=== PATIENT | female | born 1995 | race Caucasian/White ===

== ENCOUNTER 2019-10-26 12:39 | Emergency (ER) | payer SELFPAY ==
[2019-10-26 12:47] VITALS: BP 129/82; PULSE 80; RESP 14; TEMP 36.7; O2SAT 100
--- NOTE | 2019-10-26 14:24 | ED.PREGNANCY ---
HPI - General Chief complaint: OB/Uterine Contractions Stated complaint: Spotting 2 positive preg tests Time Seen by Provider: 10/26/19 14:17 Source: patient Mode of arrival: ambulatory Limitations: no limitations History of Present Illness HPI Narrative: A 24 y/o female presents to the ED with c/o vaginal bleeding. The pt states that she had 2 positive home tests on 10/18/19 and 10/22/19. She notes that last night she started to have vaginal bleeding and discharge. Pt adds that the vaginal discharge became darker today so she decided to come to the ED. She reports hematuria, tender breasts, loss of appetite, frequent urination, and intermittent lower ABD pain, but denies dysuria and nausea. Pt adds that the frequent urination started 3 weeks ago. Her LNMP was on 09/19/19. MD Complaint: vaginal bleeding Onset (ago): day(s) (1) Associated symptoms: vaginal discharge and other (Hematuria, tender breasts, loss of appetite, frequent urination, intermittent lower ABD pain) Vaginal discharge: other (Dark) Vaginal bleeding: light Date of Last Menstrual Period: 10/20/19 Related Data Allergies Allergy/AdvReac Type Severity Reaction Status Date / Time Cephalosporins Allergy Unknown Unknown Unverified 09/20/19 04:24 Penicillins Allergy Unknown Unknown Unverified 09/20/19 04:24 Review of Systems Review of Systems: All systems reviewed & are unremarkable except as noted in HPI and below Constitutional: Constitutional: Reports poor appetite Gastrointestinal: Gastrointestinal: Reports abdominal pain (Lower) and Denies nausea Genitourinary: Genitourinary: Reports abnormal vaginal bleeding, Reports hematuria, Reports nocturia, Denies dysuria and Reports vaginal discharge Integumentary/Breasts: Skin/Breast: Reports breast pain PMFSH Past Medical History Medical History (Updated 10/26/19 @ 15:26 by Dat Brennan MD) Anxiety Depression IBS (irritable bowel syndrome) Pyelonephritis Surgical History Surgical History History of tonsillectomy Social History Social History Smoking status: Never smoker Substance use: never Gender identity (if verbalized by the patient): Female Exam Const: General: healthy appearing and no acute distress Nutritional Appearance: well nourished HENMT: Mouth: Yes lip normal and Yes moist mucous membranes Eyes: Conjunctivae: conjunctivae normal Pupils: Equal, round and reactive pupils present Resp: Effort & Inspection: normal respiratory effort Auscultation: clear to auscultation bilaterally Cardio: Rate: regular rate Rhythm: regular rhythm Heart sounds: no murmurs GI: GI Palp: Yes Soft to palpation and No Tenderness to palpation present (GI) Auscultation: normal bowel sounds Back/Spine/Pelvis: Back: other (Full ROM) Skin: General skin exam: normal color, dry skin and other (Warm) Neuro: General: patient oriented x3 (Alert) Speech: normal speech Extrem: General: full ROM Psych: Mental Status: mental status grossly normal Affect: normal affect Course Vital Signs Vital signs: Vital Signs Temperature 36.7 C 10/26/19 12:47 Pulse Rate 80 10/26/19 12:47 Respiratory Rate 14 10/26/19 12:47 Blood Pressure 129/82 10/26/19 12:47 Pulse Oximetry 100 10/26/19 12:47 Temperature 36.7 C 10/26/19 12:47 Pulse Rate 80 10/26/19 12:47 Respiratory Rate 14 10/26/19 12:47 Blood Pressure 129/82 10/26/19 12:47 Pulse Oximetry 100 10/26/19 12:47 MDM - OB/Uterine Contractions MDM Narrative Medical decision making narrative: test is negative. She likely either had a very early miscarriage or they were false positives. She has some symptoms that could be suggestive of UTI. The UA is inconclusive. I will send off a urine culture and deffer treatment at this time. Medical Records Attestation: I reviewed the patient's medical records. Lab D
[2019-10-26 15:03] LABS: Add Urine Microscopic? YES; Appearance Urine Cloudy (Clear); Bilirubin Urine Negative (Negative); Blood Urine 3+ (Negative); Color Urine Red (Yellow); Glucose Urine UA Negative (Negative); Ketones Urine Negative (Negative); Leukocyte Esterase Ur 1+ LEU/UL (Negative); Mucus Urine Rare /lpf; Nitrate Urine Negative (Negative); Protein Urine 2+ mg/dL (Negative); RBC Urine >75 /hpf (0-2); Squamous Epithelial Cell Urine Occasional /hpf (Few); Urobilinogen Urine Negative mg/dL (<2.0)
== END 2019-10-26 15:48 | disposition home or self-care (01) ==
PROVIDERS: Emergency Provider Emergency Medicine
DX: N93.9 Abnormal uterine and vaginal bleeding, unspecified (principal); K58.9 Irritable bowel syndrome, unspecified
CPT/HCPCS: 81001; 81025; 87086; 87088; 99283

== ENCOUNTER 2020-07-06 16:05 | Observation (INO) | payer OTHER, SELFPAY ==
--- NOTE | 2020-08-01 08:09 | PM.OBTRLD ---
OB - Triage/Final Diagnosis Final Diagnosis (1) False labor: Code(s): O47.9 - False labor, unspecified Status: Acute
== END 2020-07-06 17:35 | disposition home or self-care (01) ==
PROVIDERS: Admitting Provider Obstetrics & Gynecology; Visit Provider Obstetrics & Gynecology
DX: O47.03 False labor before 37 completed weeks of gestation, third trimester (principal); Z3A.36 36 weeks gestation of pregnancy
CPT/HCPCS: G0378; G0379

== ENCOUNTER 2020-07-14 20:00 | Observation (INO) | payer OTHER, SELFPAY ==
[2020-07-14 21:34] VITALS: BP 122/76; PULSE 91
--- NOTE | 2020-07-14 21:54 | LDADM ---
This patient, Gia Jean, was admitted to Labor/Delivery/Recovery 105 on 07/14/20 at 20:00. Plans for labor, pain management and were discussed with patient. Patient/family oriented to hospital policies and general routines including ID bracelet, bed and alarms, visiting hours, pain management, procedures, bathroom and other care routines, personal items, smoking policy, room service/diet and guest tray routines, security routines, and visiting hours. Patient/Family are encouraged to report perceived risks to care and to ask questions if they do not understand what they are told or what they should do. See OBIX for further documentation.
[2020-07-14 21:56] VITALS: BMI 30.9
--- NOTE | 2020-08-28 10:58 | PM.OBTRLD ---
OB - Triage/Final Diagnosis Final Diagnosis (1) False labor: Code(s): O47.9 - False labor, unspecified Status: Acute
== END 2020-07-14 22:15 | disposition home or self-care (01) ==
PROVIDERS: Admitting Provider Obstetrics & Gynecology; Visit Provider Obstetrics & Gynecology
DX: O47.9 False labor, unspecified (principal); Z3A.00 Weeks of gestation of pregnancy not specified
CPT/HCPCS: G0378; G0379

== ENCOUNTER 2020-07-21 20:56 | Observation (INO) | payer OTHER, SELFPAY ==
--- NOTE | 2020-07-21 22:46 | OBADM ---
This patient, Gia Jean, admitted to the OB room Labor/Delivery/Recovery 103 for observation. Patient/family oriented to hospital policies and general routines including ID bracelet, bed and alarms, visiting hours, pain management, procedures, bathroom and other care routines, personal items, smoking policy, room service/diet, and visiting hours. Patient/Family are encouraged to report perceived risks to care and to ask questions if they do not understand what they are told or what they should do.
--- NOTE | 2020-07-24 05:38 | PM.OBTRLD ---
OB - Triage/Final Diagnosis Visit Information Date of evaluation: 07/21/20 Reason for evaluation: threatened labor
== END 2020-07-21 22:40 | disposition home or self-care (01) ==
PROVIDERS: Admitting Provider Obstetrics & Gynecology; Visit Provider Obstetrics & Gynecology
DX: O47.9 False labor, unspecified (principal); Z3A.00 Weeks of gestation of pregnancy not specified
CPT/HCPCS: G0378; G0379

== ENCOUNTER 2020-07-26 21:10 | Inpatient (IN) | payer OTHER, SELFPAY ==
[2020-07-06 17:10] VITALS: BMI 30.9
--- NOTE | 2020-07-26 21:46 | LDADM ---
This patient, Gia Jean, was admitted to Labor/Delivery/Recovery 107 on 07/26/20 at 21:10. Plans for labor, pain management and were discussed with patient. Patient/family oriented to hospital policies and general routines including ID bracelet, bed and alarms, visiting hours, pain management, procedures, bathroom and other care routines, personal items, smoking policy, room service/diet and guest tray routines, security routines, and visiting hours. Patient/Family are encouraged to report perceived risks to care and to ask questions if they do not understand what they are told or what they should do. See OBIX for further documentation.
[2020-07-26 21:47] VITALS: BMI 31.1
[2020-07-26 22:16] LABS: Basophils Percent Auto 0.2 % (0.2-1.2); Eosinophils Percent Auto 0.5 % (0-4.4); Hematocrit 32.9 % (37.0-47.0); Hemoglobin 11.6 g/dL (12.0-15.0); Immature Granulocyte Absolute 0.06 K/mm3 (0.00-0.031); Immature Granulocyte Percent A 0.7 % (0-0.5); Lymphocytes Absolute Auto 1.81 K/mm3 (0.9-3.2); Lymphocytes Percent Auto 20.6 % (18.3-44.2); Mean Corpuscular HGB Conc 35.3 g/dl (32-36); Mean Platelet Volume 9.8 fl (7.4-10.4); Monocytes Absolute Auto 0.6 K/mm3 (0.1-0.6); Monocytes Percent Auto 7.3 % (2.6-8.5); Neutrophils Absolute Auto 6.2 K/mm3 (1.3-6.7); Neutrophils Percent Auto 70.7 % (45.5-73.1); Platelet Count Result 290 k/mm3 (150-375); Red Blood Count 3.74 M/mm3 (4.2-5.4); Red Cell Distribution Width 12.1 % (11.5-14.5); White Blood Count 8.8 K/mm3 (4.5-10.0)
[2020-07-26] MEDS: DINOPROSTONE 10 MG VAG INSERT VAGINAL (22:20)
[2020-07-26 23:28] VITALS: BP 104/53; PULSE 75
[2020-07-26 23:30] VITALS: BP 106/56; PULSE 76
[2020-07-26 23:45] VITALS: BP 107/65; PULSE 72
[2020-07-27] VITALS (142 sets, daily range): BP systolic 94–153; BP diastolic 53–109; PULSE 53–142; RESP 18; TEMP 36.4–37.2; O2SAT 92–100
[2020-07-27] MEDS: fentaNYL CITRATE INJ (*CRX) 100 MCG/2 ML VIAL 50 MCG IV PUSH ×2 (01:40→04:29)
[2020-07-27] MEDS: LACTATED RINGERS 1,000 ML 125 ML IV CONT ×2 (01:41→09:12)
--- NOTE | 2020-07-27 05:32 | WPDANESEPP ---
Anes - Eval Pre Procedure Procedure: Labor epidural Date/Time: 07/27/20 05:32 Surgeon: Yayo Preop Diagnosis: Abd pain with contractions Pre Op Diagnosis: discharge, IOL Patient Data Age: 25 Gender: F Height: 5 ft 6 in Weight: 87.5 kg Last Vital Signs Temp 99 F 07/27/20 03:00 Pulse 69 07/27/20 05:00 BP 124/62 07/27/20 05:00 Allergies Allergy/AdvReac Type Severity Reaction Status Date / Time Cephalosporins Allergy Unknown Unknown Unverified 09/20/19 04:24 Penicillins Allergy Unknown Unknown Unverified 09/20/19 04:24 Home Medications Medication Instructions Recorded Confirmed Type escitalopram oxalate 20 mg PO DAILY 07/06/20 07/26/20 History [id number] 1 tablet PO DAILY 07/26/20 07/26/20 History [] Laboratory Tests 07/26/20 07/26/20 07/26/20 22:10 22:10 22:10 WBC 8.8 K/mm3 K/mm3 (4.5-10.0) RBC 3.74 M/mm3 L M/mm3 (4.2-5.4) Hgb 11.6 g/dL L g/dL (12.0-15.0) Hct 32.9 % L % (37.0-47.0) MCV 88.0 fl fl (80-100) MCH 31.0 pg pg (26-34) MCHC 35.3 g/dl g/dl (32-36) RDW 12.1 % % (11.5-14.5) Plt Count 290 k/mm3 k/mm3 (150-375) MPV 9.8 fl fl (7.4-10.4) Immature Gran % (Auto) 0.7 % H % (0-0.5) Neut % (Auto) 70.7 % % (45.5-73.1) Lymph % (Auto) 20.6 % % (18.3-44.2) Linn % (Auto) 7.3 % % (2.6-8.5) Eos % (Auto) 0.5 % % (0-4.4) Baso % (Auto) 0.2 % % (0.2-1.2) Lymph # (Auto) 1.81 K/mm3 K/mm3 (0.9-3.2) Linn # (Auto) 0.6 K/mm3 K/mm3 (0.1-0.6) Eos # (Auto) 0.0 K/mm3 K/mm3 (0-0.3) Baso # (Auto) 0.0 K/mm3 K/mm3 (0.0-0.1) Abs Immat Gran (auto) 0.06 K/mm3 H K/mm3 (0.00-0.031) Absolute Neuts (auto) 6.2 K/mm3 K/mm3 (1.3-6.7) Absolute Nucleated RBC 0.0 K/mm3 K/mm3 (0.0-0.012) Nucleated RBC % 0.0 % % (0.0-0.2) RPR Pending Blood Type B Positive Antibody Screen Negative Patient hx anesthesia problems: none Family hx anesthesia problems: none PMFSH Past Medical History Medical History Anxiety Depression IBS (irritable bowel syndrome) and not yet delivered Pyelonephritis Surgical History Surgical History History of tonsillectomy Social History Social History Smoking status: Never smoker Second hand tobacco smoke exposure: No Alcohol intake: never Substance use: never Living arrangements: with family Occupation/Education: occupation Gender identity (if verbalized by the patient): Female Sexual Orientation (if Verbalized by the Patient): Straight or Heterosexual Spiritual care concerns: No Agree to blood products: Yes Exam Day of Procedure 07/27/20 05:32 Patient weight: overweight Airway: Mallampati scale class II Neurological: alert and oriented
[2020-07-27] MEDS: ONDANSETRON INJ 4 MG/2 ML VIAL IV PUSH (06:38)
--- NOTE | 2020-07-27 08:35 | P.HP_ITS ---
Obstetrics - Admit Note Admission Note: record reviewed. No pertinent additions to the history and/or any subsequent changes in the physical findings that are not consistent with the expected course of the were found. MIL for bleeding in third trimester, SVE 3-4/70/-2, AROM moderate amount of clear odorless fluid, antici meraz vaginal delivery Additions to the history and/or subsequent changes in the physical findings follow. None.
[2020-07-27] MEDS: OXYTOCIN 30 UNITS/NS 500 ML 30 UNITS/500 ML BAG 125 UNITS IV CONT ×2 (11:52→14:15)
--- NOTE | 2020-07-27 13:44 | PM.OBPRVD ---
OB - Delivery Note Procedure Delivery date: 07/27/20 (vaginal delivery) Intrapartal events: None Induction method: none Delivery augmentation: rupture of membranes Delivery monitor: external FHT and external uterine Laceration Description: Perineal - 1st Degree Delivery repair: vicryl Specimen: Yes Quantitative Blood Loss: 213 Anesthesia type: Epidural Disposition: other () [place] Baby Date of : 07/27/20 Time of : 13:28 Weeks of gestation at delivery: 39 gender: Male Weight (pounds): 6 Weight (ounces): 13 presentation: vertex position: Left Occiput Anterior cord vessel description: 2 Vessels, Nuchal Cord and Clamped/Cut score one minute: 8 score five minutes: 9
[2020-07-27] MEDS: BENZOCAINE 20% AER SPR (*SP) 56 GM CAN 1 SPRAY TOPICAL (16:48)
[2020-07-27] MEDS: WITCH HAZEL 40 PADS 1 PAD TOPICAL (16:48)
--- NOTE | 2020-07-27 18:15 | OBPPTRN ---
1703 Patient transferred to post room #281 via W/C. Support person present. Oriented to unit, room, information board, rooming in, admission packet and security measures. Patient verbalizes understanding.
--- NOTE | 2020-07-27 19:40 | PC.NURSE ---
Patient to view the discharge video Mother & Baby Care, The First Two Weeks online per her own device. Patient was given the opportunity and encouraged to ask questions. Patient verbalized understanding of information shared and has been given the mother/baby guide for home reference.
[2020-07-27] MEDS: ZOLPIDEM TARTRATE (*CRX) 5 MG TABLET PO (21:25)
[2020-07-27] MEDS: IBUPROFEN 600 MG TABLET PO (21:26)
[2020-07-28 04:37] LABS: Hematocrit 30.3 % (37.0-47.0); Hemoglobin 10.5 g/dL (12.0-15.0)
[2020-07-28 08:15] VITALS: BP 104/65; PULSE 87; RESP 18; TEMP 37.1; O2SAT 97
[2020-07-28] MEDS: TETANUS,DIPHTHERIA,AC PERTUSSIS ADULT (0.5 ML) BOOSTRIX IM (08:44)
[2020-07-28] MEDS: IBUPROFEN 600 MG TABLET PO (08:45)
[2020-07-28] MEDS: DOCUSATE SODIUM 100 MG CAPSULE PO (08:45)
--- NOTE | 2020-07-28 09:58 | PM.OBPNVD ---
OB - PN: Subj Subjective Date/time seen: 07/28/20 09:58 Patient comments: no complaints baby status: doing well OB - PN: Obj Data Labs CBC & Chem 7: 07/28/20 03:37 Labs: Laboratory Results - last 24 hr 07/28/20 03:37 Hgb 10.5 L Hct 30.3 L OB - PN A/P Plan day: 1 Plan: routine care and discharge home Time Spent With Patient Time: Total time spent is greater than 50% in coordination of care (as documented) at patient's floor/unit and/or counseling patient: Review of Systems Review of Systems: All systems reviewed & are unremarkable except as noted in HPI and below Constitutional: Constitutional: Reports as per HPI Exam Const: General: cooperative Resp: Effort & Inspection: normal respiratory effort Auscultation: clear to auscultation bilaterally
--- NOTE | 2020-07-28 10:00 | PM.OBDSVD ---
DS: Admitting Diagnosis Admitting Diagnosis Admitting Diagnosis: discharge, IOL OB - DS: Summary OB Procedures : None OB Procedures Intrapartum: Spontaneous Vag Delivery OB Procedures: : None Time Spent with Patient Time attestation: Total time spent providing and/or coordinating discharge services: DS: Data Data Completed and Pending Pending studies at discharge: Pending at discharge 07/27/20 15:57 Surgical [PTH] Routine Labs on day of discharge: Labs from last 24 hours 07/28/20 03:37 Hgb 10.5 L Hct 30.3 L Discharge Plan Discharge Attending physician on discharge: Nancy Zee Consulting providers: Chin Garcia Discharging Clinician: Brittany Jackman Patient Disposition: Home, Self-Care Activity: pelvic rest Diet: as tolerated Patient Instructions: Antibiotic Form Stand Alone Forms: General Discharge Information Follow-up/Referrals: Brittany Jackman CNM [Certified Nurse Automobile Service Station Mechanic] - 4 Weeks Discharge Medications: Continued escitalopram oxalate 20 mg tablet 20 mg PO DAILY RF: 0 1 mg Tablet 1 tablet PO DAILY RF: 0 Date of admission: 07/26/20 21:10 Primary Care Provider: PHYSICIAN,BARREL PLANER Admitting Provider: Nancy Zee Attending physician on admission: Nancy Zee Condition: Stable
[2020-07-28 22:13] LABS: Rapid Plasma Reagin Non-Reactive (NonReactive)
[2020-07-31 12:04] VITALS: BP 118/75; PULSE 85; RESP 16; TEMP 36.8; O2SAT 99
== END 2020-07-28 15:59 | disposition home or self-care (01) | DRG 560 ==
LOC: ANHLDR 22:02 → ANHOB2 07-27 17:07
PROVIDERS: Advanced Practice Midwife; Admitting Provider Obstetrics & Gynecology; Visit Provider Obstetrics & Gynecology
DX: O99.824 Streptococcus B carrier state complicating childbirth (principal); O70.0 First degree perineal laceration during delivery; O69.81X0 Labor and delivery complicated by cord around neck, without compression, not applicable or unspecified; Z3A.39 39 weeks gestation of pregnancy; Z37.0 Single live birth; Z23 Encounter for immunization
CPT/HCPCS: 36415; 85014; 85018; 85025; 86592; 86850; 86900; 86901; 88307; 90471; 90653; 90715; A9270; G0008; J2405; J2590; J2795; J3010; J3370; J7120

== ENCOUNTER 2020-08-05 23:37 | Emergency (ER) | payer OTHER, SELFPAY ==
--- NOTE | ~2020-08-05 | CT_ITS ---
EXAMINATION: CT abdomen pelvis w con DATE: 08/06/2020 01:23 INDICATION: Left lower quadrant abdominal pain. TECHNIQUE: Computed tomography (CT) of the abdomen and pelvis was performed with 100 mL Omnipaque 350 intravenous contrast. Automated exposure control and iterative reconstruction technique were employe d. The dose-length product was 548.60 mGy-cm. COMPARISON: CT abdomen and pelvis 04/24/2019 FINDINGS: The visualized portions of the lung bases are clear without pneumonia or pleural effusion. The heart size is normal. No pericardial effusion. The liver demonstrates focal steatosis adjacent to the falciform ligament. The gallbladder, spleen, pancreas, adrenal glands, and kidneys are normal. T here are no dilated loops of bowel. The appendix is not visualized. The uterus is enlarged, consisten t with recent . The endometrial complex measures 14 mm in thickness. There are no pathologic ally enlarged lymph nodes. There is no free intraperitoneal fluid. The bones are unremarkable. IMPRESSION: 1. Thickened endometrial complex, which may be hematoma or retained products of conception. I discuss ed this result with Dr. Zee on 08/06/20 at 8:49 AM. Reviewed, dictated and finalized at location B. GER PHOTOGRAPHY IMPRESSION: 1. Thickened endometrial complex, which may be hematoma or retained products of conception. I discussed this result with Dr. Zee on 08/06/20 at 8:49 AM.
[2020-08-05 23:39] VITALS: BP 125/80; PULSE 98; RESP 16; TEMP 36.8; O2SAT 98
--- NOTE | 2020-08-06 00:33 | ED.GENADULT ---
HPI - General Adult General Chief complaint: Headache Stated complaint: fever Time Seen by Provider: 08/05/20 23:47 History of Present Illness HPI narrative: Patient is a 25-year-old female who presents ER with concerns of fever with headache as well as lower abdominal discomfort. Patient is recently with a delivery on 07/27/2020. It was a vaginal delivery. She is not breast-feeding. She reports that 2 days ago she developed a dull headache is bitemporal. It goes away with oral medication. She then started developing some lower abdominal cramping and has had some increase in her lochia/bleeding. Today she developed fever and she felt she should be evaluated further. She is not having dysuria or urinary frequency. She is without runny nose/sore throat/productive cough. She does have some body aches that are intermittent. No known sick contacts. Patient had previously had Covid about 2.5 months ago. Related Data Home Medications Medication Instructions Recorded Confirmed escitalopram oxalate 20 mg PO DAILY 07/06/20 07/26/20 [id number] 1 tablet PO DAILY 07/26/20 07/26/20 Allergies Allergy/AdvReac Type Severity Reaction Status Date / Time Cephalosporins Allergy Mild Hives Verified 07/28/20 14:21 Penicillins Allergy Mild Hives Verified 07/28/20 08:44 Review of Systems Review of Systems: All systems reviewed & are unremarkable except as noted in HPI and below Constitutional: Constitutional: Denies chills, Reports fever(s) and Denies weakness ENT: Denies nasal congestion and Denies sore throat Gastrointestinal: Gastrointestinal: Reports abdominal pain, Denies nausea and Denies vomiting Genitourinary: Genitourinary: Reports abnormal vaginal bleeding, Denies nocturia, Denies dysuria and Denies vaginal discharge Musculoskeletal: Musculoskeletal: Reports myalgias Neurologic: Reports headache(s), Denies focal weakness and Denies numbness PMF Past Medical History Medical History Anxiety Depression IBS (irritable bowel syndrome) and not yet delivered Pyelonephritis Surgical History Surgical History History of tonsillectomy Social History Social History Smoking status: Never smoker Second hand tobacco smoke exposure: No Alcohol intake: never Substance use: never Gender identity (if verbalized by the patient): Female Spiritual care concerns: No Agree to blood products: Yes Exam Narrative: Exam Narrative: GENERAL: Well-appearing, well-nourished, and in no acute distress. HEAD: Normocephalic, atraumatic. CHEST: Clear to auscultation. No respiratory distress. HEART: Regular rate and rhythm. Normal peripheral pulses. ABDOMEN: Soft, mild tenderness left lower quadrant and suprapubic region without guarding, nondistended. Pelvic: EXTREMITIES: Normal range of motion. No edema. SKIN: Warm, dry, no rash. NEURO: Alert and oriented x3. PSYCH: Normal mood and affect. Course Course Emergency Course: Patient informed of results. Discussed case with Dr. Zee. Patient will start on Cipro and Flagyl. Can follow-up in 1 week. Most likely UTI but Flagyl added in case there is a component of endometritis. Vital Signs Vital signs: Vital Signs Temperature 98.2 F 08/05/20 23:39 Pulse Rate 98 08/05/20 23:39 Respiratory Rate 16 08/05/20 23:39 Blood Pressure 125/80 08/05/20 23:39 Pulse Oximetry 98 08/05/20 23:39 Temperature 98.2 F 08/05/20 23:39 Pulse Rate 98 08/05/20 23:39 Respiratory Rate 16 08/05/20 23:39 Blood Pressure 125/80 08/05/20 23:39 Pulse Oximetry 98 08/05/20 23:39 Medical Decision Making Vital Signs Vital Signs: Vital Signs Temperature 98.2 F 08/05/20 23:39 Pulse Rate 98 08/05/20 23:39 Respiratory Rate 16 08/05/20 23:39 Blood Pressure 125/8
[2020-08-06] MEDS: SODIUM CHLORIDE 0.9% IV 1,000 ML 999 ML IV CONT (00:50)
[2020-08-06 00:53] LABS: Basophils Percent Auto 0.2 % (0.2-1.2); Eosinophils Absolute Auto 0.1 K/mm3 (0-0.3); Eosinophils Percent Auto 0.6 % (0-4.4); Hematocrit 36.8 % (37.0-47.0); Hemoglobin 12.7 g/dL (12.0-15.0); Immature Granulocyte Absolute 0.07 K/mm3 (0.00-0.031); Immature Granulocyte Percent A 0.5 % (0-0.5); Lymphocytes Absolute Auto 1.67 K/mm3 (0.9-3.2); Lymphocytes Percent Auto 12.9 % (18.3-44.2); Mean Corpuscular HGB Conc 34.5 g/dl (32-36); Mean Corpuscular Hemoglobin 30.9 pg (26-34); Mean Corpuscular Volume 89.5 fl (80-100); Mean Platelet Volume 9.2 fl (7.4-10.4); Monocytes Percent Auto 7.6 % (2.6-8.5); Neutrophils Absolute Auto 10.1 K/mm3 (1.3-6.7); Neutrophils Percent Auto 78.2 % (45.5-73.1); Platelet Count Result 376 k/mm3 (150-375); Red Blood Count 4.11 M/mm3 (4.2-5.4)
[2020-08-06 01:06] LABS: Anion Gap 6 mmol/L (8-16); Blood Urea Nitrogen 22 mg/dL (7-17); Calcium 8.6 mg/dL (8.4-10.2); Carbon Dioxide 26 mmol/L (22-30); Chloride 104 mmol/L (98-107); Estimated CRCL calculation 100 ml/min; Estimated Glomerular Filt Rate > 60; Glucose 90 mg/dL (65-105); Potassium 3.9 mmol/L (3.4-5.0); Sodium 136 mmol/L (137-145)
[2020-08-06 01:11] LABS: Add Urine Microscopic? YES; Appearance Urine Cloudy (Clear); Bacteria Urine Trace /hpf; Bilirubin Urine Negative (Negative); Blood Urine 3+ (Negative); Glucose Urine UA Negative (Negative); Ketones Urine Negative (Negative); Leukocyte Esterase Ur 3+ LEU/UL (Negative); Nitrate Urine Negative (Negative); Protein Urine 1+ mg/dL (Negative); Specific Grav Ur 1.006 (1.001-1.035); Squamous Epithelial Cell Urine Rare /hpf (Few); Urobilinogen Urine Negative mg/dL (<2.0); WBC Urine >75 /hpf
[2020-08-06 01:13] LABS: Color Urine Light Yellow (Yellow)
[2020-08-06] MEDS: metroNIDAZOLE 250 MG TABLET 500 MG PO (01:59)
[2020-08-06] MEDS: CIPROFLOXACIN 500 MG TAB PO (01:59)
[2020-08-06 02:00] VITALS: BP 123/87; PULSE 79; RESP 15; O2SAT 98
== END 2020-08-06 02:00 | disposition home or self-care (01) ==
PROVIDERS: Emergency Provider Emergency Medicine
DX: O86.20 Urinary tract infection following delivery, unspecified (principal); O99.345 Other mental disorders complicating the puerperium; F32.9 Major depressive disorder, single episode, unspecified; F41.9 Anxiety disorder, unspecified
CPT/HCPCS: 36415; 74177; 80048; 81001; 85025; 87086; 96360; 99284; A9270; J7030; Q9967

== ENCOUNTER 2025-04-09 22:33 | Outpatient (CLI) | payer OTHER, SELFPAY ==
[2025-04-09] VITALS (12 sets, daily range): BP systolic 118–127; BP diastolic 67–79; PULSE 80–97; TEMP 36.6; O2SAT 96–99; BMI 32.0
--- OUTSIDE RECORDS SUMMARY | 2025-04-09 22:38 | XMS_ITS | Clinical Summary ---
Author Organization [facility] [address] Address [address] [place] [id number] Care Team Providers Care Apple Peeler Operator Name Role Phone Kartik Guerin MD Primary Care Provider [phone] Allergies Active Allergy Reactions Criticality Noted Date Comments Penicillins Hives Medium 09/22/2024 Medications PNV with [id number] 27 mg iron- 1 mg tablet Take 1 tablet by mouth daily 30 tablet 09/22/2024 Active Social History Tobacco Use Types Packs/Day Years Used Date Smoking Tobacco: Never Assessed Personal Safety Answer Date Recorded Have you ever been in or are you currently in a harmful physical or emotional relationship or is someone making you feel afraid or unsafe? Denies 09/22/2024 Comments Unknown Sex and Gender Information Value Date Recorded Sex Assigned at Not on file Legal Sex Female 7:36 PM CONSUMER SCIENCE TEACHER Gender Identity Not on file Sexual Orientation Not on file Last Filed Vital Signs Vital Sign Reading Time Taken Comments Blood Pressure 136/90 09/22/2024 12:50 PM CONSUMER SCIENCE TEACHER Pulse 70 09/22/2024 12:50 PM CONSUMER SCIENCE TEACHER Temperature 37.2 C (99 F) 09/22/2024 12:50 PM CONSUMER SCIENCE TEACHER Respiratory Rate 16 09/22/2024 12:50 PM CONSUMER SCIENCE TEACHER Oxygen Saturation 99% 09/22/2024 12:50 PM CONSUMER SCIENCE TEACHER Inhaled Oxygen Concentration - - Weight 73.9 kg (163 lb) 09/22/2024 12:50 PM CONSUMER SCIENCE TEACHER Height 167.6 cm (5' 6) 09/22/2024 12:50 PM CONSUMER SCIENCE TEACHER Body Mass Index 26.31 09/22/2024 12:50 PM CONSUMER SCIENCE TEACHER Plan of Treatment Health Maintenance Due Date Last Done Comments Cervical Cancer Screening 1995 Depression Screening 1995 Hepatitis C Screening 1995 Varicella Vaccines (1 of 2 - 13+ 2-dose series) 2008 Regular Well Visit/Exam 18-64 2013 HPV Vaccines (1 - 3-dose SCDM series) 2022 Covid-19 Vaccine ( season) 2024 04/13/2023, 09/29/2022, 08/05/2022 Influenza Vaccine (#1) 2025 4, 04/13/2023, 06/26/2022, Additional history exists DTaP/Tdap/Td Vaccine (7 - Td or Tdap) 06/26/2032 06/26/2022, 07/28/2020, 10/13/1996, Additional history exists Hepatitis B Screening Completed 02/29/1996 , 1995, 1995 Pneumococcal vaccine <65 Aged Out No longer eligible based on patient's age to complete this topic Insurance [facility] [employer] Address: [facility] [id number] [place] [address] Care Teams Apple Peeler Operator Relationship Specialty Start Date End Date Kartik Guerin MD [address] [place] [address] PCP - General Occupational Medicine 08/08/24
--- OUTSIDE RECORDS SUMMARY | 2025-04-09 22:38 | XMS_ITS | Clinical Summary ---
Author Organization [facility] Address [address] [place] [id number] Care Team Providers Care Pig Farm Manager Name Role Phone None, Provider MD Primary Care Provider Unavaila ble Allergies Active Allergy Reactions Criticality Noted Date Comments Penicillins Hives 10/18/2022 Medications buPROPion XL (WELLBUTRIN XL) 150 MG 24 hr tablet Take 1 tablet by mouth daily. 09/05/2022 Active escitalopram (LEXAPRO) 20 MG tablet Take 1 tablet by mouth daily. 09/05/2022 Active Family History Medical History Relation Comments No Known Problems Father No Known Problems Mother Relation Status Comments Father Alive Mother Alive Social History Tobacco Use Types Packs/Day Years Used Date Smoking Tobacco: Never Passive Smoke Exposure: Never Smokeless Tobacco: Never Tobacco Cessation:Counseling Given: Not Answered Alcohol Use Standard Drinks/Week Comments Yes 0 (1 standard drink = 0.6 oz pur e alcohol) rare use Comments No Sex and Gender Information Value Date Recorded Sex Assigned at Not on file Legal Sex Female 7:35 PM CDT Gender Identity Not on file Sexual Orientation Not on file Last Filed Vital Signs Vital Sign Reading Time Taken Comments Blood Pressure 121/71 10/18/2022 11:29 AM ENVIRONMENTAL ENGINEERING INTERN Pulse 58 10/18/2022 11:29 AM ENVIRONMENTAL ENGINEERING INTERN Temperature 36.1 C (97 F) 10/18/2022 11:29 AM ENVIRONMENTAL ENGINEERING INTERN Respiratory Rate 16 10/18/2022 11:29 AM ENVIRONMENTAL ENGINEERING INTERN Oxygen Saturation 100% 10/18/2022 11:29 AM ENVIRONMENTAL ENGINEERING INTERN Inhaled Oxygen Concentration - - Weight 71.7 kg (158 lb) 10/18/2022 11:29 AM ENVIRONMENTAL ENGINEERING INTERN Height 167.6 cm (5' 6) 10/18/2022 11:29 AM ENVIRONMENTAL ENGINEERING INTERN Body Mass Index 25.5 10/18/2022 11:29 AM ENVIRONMENTAL ENGINEERING INTERN Plan of Treatment Health Maintenance Due Date Last Done Comments Cervical Cancer Screening Pap Smear (Age 21 to 29) Every 3 Years 1995 Cervical Cancer Screening 1995 Annual Physical 1998 Hepatitis C 2013 HPV Vaccines (1 - 3-dose SCDM series) 2022 COVID-19 Vaccine (2 - season) 2024 08/05/2022 DTaP, Tdap and Td Vaccines (3 - Td or Tdap) 06/26/2032 06/26/2022, 07/28/2020, 10/13/1996, Additional history exists Hepatitis B Vaccines Completed 02/29/1996, 1995, 1995 Meningococcal B Vaccine Aged Out No l onger eligible based on patient's age to complete this topic Meningococcal Vaccine Aged Out No rajesh suzan eligible based on patient's age to complete this topic Pneumococcal Vaccine: Pediatrics (0 to 5 Years) and At-Risk Patients (6 to 49 Years) Aged Out No longer eligible based on patient's age to complete this topic RSV Immunizations Under 20 Months Aged Out No longer eligible based on patient's age to complete this topic Insurance Care Teams Pig Farm Manager Relationship Specialty Start Date End Date None, Provider, MD PCP - General UNKNOWN PHYSICIAN SPECIALTY 10/18/22
--- OUTSIDE RECORDS SUMMARY | 2025-04-09 22:38 | XMS_ITS | Clinical Summary ---
Author Organization [facility] Address [address] [place] [address] Care Team Providers Care Web Architect Name Role Phone Geno Burton MD Primary Care Provider Source Comments [facility],non-owned Affiliates and Associated Physician Practices is amultiple site organization consisting of ambulatory clinics and hospital sitesin [place], [place], [place] and [place]. This disclosure is being madepursuant to the Care Everywhere program and may not contain all information available regarding this patient. Last updated 18.[facility] Allergies Active Allergy Reactions Criticality Noted Date Comments Cefprozil Rash Medium 04/24/2020 Penicillins Rash Medium 04/22/2020 Medications * Be aware that medications may not be up to date on this document. Alwaysverify current medications with the patient. Vit-Fe Fumarate-FA ( VITAMIN) 28-0.8 MG tabletIndicati ons: Take 1 tablet by mouth once daily Reasons: Active sertraline (ZOLOFT) 50 MG tabletIndicati ons:Generalize d Anxiety Disorder Take 50 mg by mouth once daily Reasons: Generalized Anxiety Disorder Active acetaminophen (Tylenol) 500 MG tablet Take 2 (two) tablets by mouth every 6 hours as needed for Pain Maximum allowable Acetaminophen amount = 4 Grams (4000 mg) / 24 hours. 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 Assessment & Plan (05/22/2020 4:47 PM CDT): Floyd had cell free DNA aneuploidy screening performed during this with a low risk result. Less than expected growth without signs of placental insufficiency Recent cardiac evaluation resulted in normal echo. Maternal Medicine recommendations: 1. Follow up ultrasound in 3 weeks to re-evaluate growth as per our growth restriction protocol, see formal report sent separately. 2. Instructed on importance of twice daily kick counts and to seek prompt evaluation if not getting 10 movements in two hours. 3. I also reviewed preeclampsia and labor warnings in detail today. 4. No indication for testing unless estimated weight and abdominal circumference measurements are both less than the 10th percentile, especially if the abdominal circumference measures less than the 3rd percentile. 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 An echogenic intracardiac focus was demonstrated as well. While the detailed survey did not demonstrate any additional cardiovascular malformations, the axis deviation and the umbilical cord vessel number abnormality are both anomalies of the cardiovascular system. I do believe that a echocardiogram would be of benefit in this to rule out any additional and/or significant cardiovascular malformations. We also discussed that the 2 vessel umbilical cord could explain the less than expected growth. In diagnosing growth restriction by ultrasound, abdominal circumference less than the 10th percentile has the greatest sensitivity and estimated weight less than the 3rd percentile has the greatest specificity. When the estimated weight is less than the 10th percentile and there are abnormal changes in the umbilical or middle cerebral artery, this has greatest specificity for adverse outcomes. Today the abdominal circumference measurement is greater than the 20th percentile for this fetus which is reassuring. Additionally the overall estimated weight is greater than the 10th percentile. Floyd had cell free DNA aneuploidy screening performed during this with a low risk result. We reviewed the accuracy of this screen for common aneuploidies. Maternal Medicine recommendations: 1. echocardiogram with either Pediatric Cardiology or Maternal- Medicine--referral initiated 2. reassess growth every 4 weeks 1. no indication for testing unless estimated weight and abdominal circumference measurements are both less than the 10th percentile, especially if the abdominal circumference measures less than the 3rd percentile 2. No indication for delivery prior to 39 weeks identified at this time 3. No contra indication to vaginal delivery identified at this time 3. mother and child would benefit from Depression with anxiety 08/30/2014 Overview (04/24/2020): on zoloft/ been on citalapram from [age] years. Assessment & Plan (05/22/2020 4:50 PM CDT): Mood improved with sertraline, notes some occasional anxiety and mood irritability that has persisted. She continues to take 50mg daily of sertraline. Denies SI/HI. MFM Plan: 1. Encouraged her speaking with her Carbonation Equipment Tender who prescribes the sertraline if she thinks she could benefit from increased dosage. 2. would benefit from increased supervision in the 1st 48 hours of life. 3. Encouraged , no contraindication. Assessment & Plan (04/24/2020 1:11 PM CDT): Mood appears appropriate today. Remains at risk for mood deterioration during and . U.[place] FDA category not assigned. Animal studies have failed to show evidence of teratogenicity; however, there has been evidence of delayed ossification. There may be potential for drug discontinuation syndrome in the . Some experts suggest that newborns be observed for the first 48 hours of life after , if there has been exposure late in the 3rd trimester. SSRIs, in general, may increase the risk of persistent pulmonary hypertension of the . This drug is considered one of the preferred antidepressants during breast-feeding. Maternal Medicine recommendations: 1. Notify instructor robotics of Zoloft use if continued into the 3rd trimester 1. [place] would benefit from increased supervision in the 1st 48 hours of life 2. No contraindication of Family History Medical History Relation Name Comments Diabetes - Type 2 Maternal Grandfather Hypertension Maternal Grandfather Diabetes - Type 2 Maternal Grandmother Hypertension Maternal Grandmother Relation Name Status Comments Father Alive Maternal Grandfather Maternal Grandmother Alive Mother Alive Social History Tobacco Use Types Packs/Day Years Used Date Smoking Tobacco: Never Smokeless Tobacco: Never Alcohol Use Standard Drinks/Week Comments Not Currently 0 (1 standard drink = 0.6 oz pur e alcohol) AUDIT-C Answer Date Recorded Q1: How often do you have a drink containing alcohol? Never 12/19/2023 Q2: How many drinks containi ng alcohol do you have on a typical day when you are drinking? Patient does not drink Frequency of Binge Drinking Not on file 11/29 Comments No Sex and Gender Information Value Date Recorded Sex Assigned at Not on file Legal Sex Female 5:45 AM SERVICE LINE COORDINATOR Gender Identity Not on file Sexual Orientation Not on file Last Filed Vital Signs Vital Sign Reading Time Taken Comments Blood Pressure 112/76 12/20/2023 2:01 AM CDT Pulse 71 05/22/2020 2:58 PM CDT Temperature 36.9 C (98.5 F) 12/19/2023 11:13 PM CDT Respiratory Rate 15 12/19/2023 11:13 PM CDT Oxygen Saturation 97% 12/20/2023 1:54 AM CDT Inhaled Oxygen Concentration - - Weight 72.6 kg (160 lb) 12/19/2023 11:13 PM CDT Height 167.6 cm (5' 6) 12/19/2023 11:13 PM CDT Body Mass Index 25.82 12/19/2023 11:13 PM CDT Plan of Treatment Health Maintenance Due Date Last Done Comments HIV SCREENING 2010 HEPATITIS C SCREENING 07/02/2013 DTAP/TDAP/TD VACCINES (1 - Tdap) 2014 HEPATITIS B VACCINE (1 of 3 - 19+ 3-dose series) 2014 PAP SMEAR 2016 HPV VACCINE (1 - 3-dose SCDM series) 2022 COVID-19 VACCINE ( season) 2024 04/13/2023, 09/29/2022, 08/05/2022 DEPRESSION SCREENING 08/30/2024 INFLUENZA VACCINE (#1) 2025 3, 06/26/2022, 07/28/2020, Additional history exists ZOSTER VACCINE (1 of 2) 2045 HIB VACCINE Aged Out No longer eligi ble based on patient's age to complete this topic MENINGOCOCCAL (Group B) VACCINE SHARED DECISION-MAKING Aged Out No longer eligible based on patient's age to complete this topic MENINGOCOCCAL GROUPS A/C/Y/W VACCINE Aged Out No longer eligible based on patient's age to complete this topic PNEUMOCOCCAL VACCINE Aged Out No long er eligible based on patient's age to complete this topic Insurance MEDICAID HEALTHY BLUE [facility] Care Teams Web Architect Relationship Specialty Start Date End Date Geno Burton MD [address] [place] [id number] PCP - General 05/17/20
--- NOTE | 2025-04-09 22:43 | PC.NURSE ---
Patient arrives to OB unit with complaints of elevated blood pressures at home. Patient states she worked today and had been home for a couple hours and noticed her legs were very swollen. Patient states because of the swelling she took her blood pressures at home and that they were elevated. Patient states she had noticed RUQ pain on the way here, but that it lasted about a minute. Patient states she has a dull headache that she has not taken anything for. Patient states she also has fuzzy vision. Patient is a and has a placenta previa this . Patient denies any vaginal bleeding or leaking of fluid. Patient states she has good movement.
[2025-04-09 22:55] LABS: Hematocrit 33.7 % (37.0-47.0); Hemoglobin 11.3 g/dL (12.0-15.0); Immature Granulocyte Percent A 0.5 % (0-0.5); Lymphocytes Absolute Auto 2.45 K/mm3 (0.9-3.2); Mean Corpuscular HGB Conc 33.5 g/dl (32-36); Mean Corpuscular Hemoglobin 30.1 pg (26-34); Mean Corpuscular Volume 89.6 fl (80-100); Nucleated Red Blood Cells Absolute Auto 0.000 K/mm3 (0.0-0.012); Nucleated Red Blood Cells Perc 0.0 % (0.0-0.2); Platelet Count Result 307 k/mm3 (150-375); Red Blood Count 3.76 M/mm3 (4.2-5.4); White Blood Count 9.8 K/mm3 (4.5-10.0)
[2025-04-09 23:02] LABS: Add Urine Microscopic? YES; Appearance Urine Clear (Clear); Glucose Urine UA Negative (Negative); Leukocyte Esterase Ur 1+ LEU/UL (Negative); Nitrate Urine Negative (Negative); Non Pathogenic Casts 0-2; Specific Grav Ur 1.011 (1.001-1.035)
[2025-04-09 23:07] LABS: Total Protein Urine Random 15 mg/dL; Ur Ttl Prot Creatinine Ratio 0.21 mg/mg (0-0.20)
[2025-04-09 23:10] LABS: Alanine Aminotransferase 21 U/L (6-35); Albumin Level 3.3 g/dL (3.5-5.1); Alkaline Phosphatase 142 U/L (38-126); Anion Gap 6 mmol/L (4-12); Aspartate Amino Transferase 32 U/L (14-36); Bilirubin,Total 0.3 mg/dL (0.2-1.3); Blood Urea Nitrogen 7 mg/dL (7-17); Calcium 8.7 mg/dL (8.4-10.2); Carbon Dioxide 22 mmol/L (22-30); Chloride 106 mmol/L (98-107); Estimated Glomerular Filt Rate > 60; Glucose 103 mg/dL (65-110); Potassium 3.6 mmol/L (3.4-5.0); Sodium 134 mmol/L (137-145); Total Protein 6.3 g/dL (6.3-8.2); Uric Acid 4.6 mg/dL (2.5-7.5)
--- NOTE | 2025-04-09 23:17 | PC.NURSE ---
RN notified Dr. Zee of patient arrival and patient complaints. RN notified MD of FHT tracing with moderate variability and accelerations. RN also notified MD of the presence of rare contractions. RN notified MD of lab results as well as VS. MD gave orders to d/c patient.
== END 2025-04-09 23:37 | disposition home or self-care (01) ==
LOC: ANHOBOP 22:36 → ANHLDR 22:37
PROVIDERS: Visit Provider Obstetrics & Gynecology
DX: O12.00 Gestational edema, unspecified trimester (principal); Z3A.00 Weeks of gestation of pregnancy not specified; R82.90 Unspecified abnormal findings in urine
CPT/HCPCS: 36415; 59025; 80053; 81001; 82570; 84156; 84550; 85025; 87086

== ENCOUNTER 2025-04-11 10:23 | Outpatient (CLI) | payer OTHER, SELFPAY ==
--- OUTSIDE RECORDS SUMMARY | 2025-04-11 10:41 | XMS_ITS | Clinical Summary ---
Author Organization [facility] Address [address] [address] Care Team Providers Care Electrical Prospecting Operator Name Role Phone Geno Burton MD Primary Care Provider Source Comments [facility],non-owned Affiliates and Associated Physician Practices is amultiple site organization consisting of ambulatory clinics and hospital sitesin [place], [place], [place] and [place]. This disclosure is being madepursuant to the Care Everywhere program and may not contain all information available regarding this patient. Last updated 18.[facility] Allergies Active Allergy Reactions Criticality Noted Date [...] Plan: 1. Encouraged her speaking with her Architectural Examiner who prescribes the sertraline if she thinks [...] during breast-feeding. Maternal Medicine recommendations: 1. Notify proj engineer of Zoloft use if continued into the 3rd trimester 1. [place] would benefit from increased supervision in the [...] on file Legal Sex Female 5:45 AM TAP PULLER Gender Identity Not on file Sexual Orientation [...] this topic Insurance MEDICAID HEALTHY BLUE [facility] Care Teams Electrical Prospecting Operator Relationship Specialty Start Date End Date Geno Burton MD [address] [place] [id number] PCP - General 05/17/20
--- OUTSIDE RECORDS SUMMARY | 2025-04-11 10:41 | XMS_ITS | Clinical Summary ---
Author Organization [facility] Address [address] [place] [id number] Care Team Providers Care Pleater Name Role Phone None, Provider MD Primary [...] Comments Blood Pressure 121/71 10/18/2022 11:29 AM FIRE LIEUTENANT MARINE Pulse 58 10/18/2022 11:29 AM FIRE LIEUTENANT MARINE Temperature 36.1 C (97 F) 10/18/2022 11:29 AM FIRE LIEUTENANT MARINE Respiratory Rate 16 10/18/2022 11:29 AM FIRE LIEUTENANT MARINE Oxygen Saturation 100% 10/18/2022 11:29 AM FIRE LIEUTENANT MARINE Inhaled Oxygen Concentration - - Weight 71.7 kg (158 lb) 10/18/2022 11:29 AM FIRE LIEUTENANT MARINE Height 167.6 cm (5' 6) 10/18/2022 11:29 AM FIRE LIEUTENANT MARINE Body Mass Index 25.5 10/18/2022 11:29 AM FIRE LIEUTENANT MARINE Plan of Treatment Health Maintenance Due Date [...] to complete this topic Insurance Care Teams Pleater Relationship Specialty Start Date End Date None, Provider, MD PCP - General UNKNOWN PHYSICIAN SPECIALTY 10/18/22
--- OUTSIDE RECORDS SUMMARY | 2025-04-11 10:41 | XMS_ITS | Clinical Summary ---
Author Organization [facility] [address] Address [address] [place] [id number] Care Team Providers Care Cigar Packer And Sorter Name Role Phone Kartik Guerin MD Primary Care Provider [phone] Allergies Active Allergy Reactions Criticality Noted Date Comments Penicillins Hives Medium 09/22/2024 Medications PNV with [id number] 27 mg iron- 1 mg tablet Take [...] on file Legal Sex Female 7:36 PM INSULATION BLOWER Gender Identity Not on file Sexual Orientation Not on file Last Filed Vital Signs Vital Sign Reading Time Taken Comments Blood Pressure 136/90 09/22/2024 12:50 PM INSULATION BLOWER Pulse 70 09/22/2024 12:50 PM INSULATION BLOWER Temperature 37.2 C (99 F) 09/22/2024 12:50 PM INSULATION BLOWER Respiratory Rate 16 09/22/2024 12:50 PM INSULATION BLOWER Oxygen Saturation 99% 09/22/2024 12:50 PM INSULATION BLOWER Inhaled Oxygen Concentration - - Weight 73.9 kg (163 lb) 09/22/2024 12:50 PM INSULATION BLOWER Height 167.6 cm (5' 6) 09/22/2024 12:50 PM INSULATION BLOWER Body Mass Index 26.31 09/22/2024 12:50 PM INSULATION BLOWER Plan of Treatment Health Maintenance Due Date [...] to complete this topic Insurance [facility] [employer] Address: [facility] [id number] [place] [address] Care Teams Cigar Packer And Sorter Relationship Specialty Start Date End Date Kartik Guerin MD [address] [place] [address] PCP - General Occupational Medicine 08/08/24
[2025-04-11 11:23] LABS: Hematocrit 35.6 % (37.0-47.0); Hemoglobin 12.1 g/dL (12.0-15.0); Mean Corpuscular HGB Conc 34.0 g/dl (32-36); Mean Corpuscular Hemoglobin 30.0 pg (26-34); Mean Corpuscular Volume 88.1 fl (80-100); Platelet Count Result 314 k/mm3 (150-375); Red Blood Count 4.04 M/mm3 (4.2-5.4); White Blood Count 9.9 K/mm3 (4.5-10.0)
[2025-04-11 11:45] LABS: Total Protein Urine Random 12 mg/dL; Ur Ttl Prot Creatinine Ratio 0.18 mg/mg (0-0.20)
[2025-04-11 11:51] LABS: Alanine Aminotransferase 21 U/L (6-35); Albumin Level 3.5 g/dL (3.5-5.1); Alkaline Phosphatase 166 U/L (38-126); Anion Gap 5 mmol/L (4-12); Aspartate Amino Transferase 36 U/L (14-36); Bilirubin,Total 0.4 mg/dL (0.2-1.3); Blood Urea Nitrogen 6 mg/dL (7-17); Calcium 8.9 mg/dL (8.4-10.2); Carbon Dioxide 25 mmol/L (22-30); Chloride 104 mmol/L (98-107); Estimated Glomerular Filt Rate > 60; Glucose 74 mg/dL (65-110); Potassium 3.9 mmol/L (3.4-5.0); Sodium 134 mmol/L (137-145); Total Protein 6.7 g/dL (6.3-8.2); Uric Acid 4.7 mg/dL (2.5-7.5)
== END 2025-04-11 10:24 | disposition home or self-care (01) ==
PROVIDERS: Visit Provider Advanced Practice Midwife
DX: Z36.89 Encounter for other specified antenatal screening (principal); Z3A.00 Weeks of gestation of pregnancy not specified
CPT/HCPCS: 36415; 80053; 82570; 84156; 84550; 85027

== ENCOUNTER 2025-04-21 06:16 | Inpatient (IN) | payer OTHER, SELFPAY ==
[2025-04-21] VITALS (164 sets, daily range): BP systolic 91–153; BP diastolic 34–89; PULSE 60–163; RESP 16–18; TEMP 36.5–37.3; O2SAT 83–100; BMI 33.3
--- OUTSIDE RECORDS SUMMARY | 2025-04-21 06:22 | XMS_ITS | Clinical Summary ---
Author Organization [facility] [address] Address [address] [place] [id number] Care Team Providers Care Senior Mobile Web Developer Name Role Phone Kartik Guerin MD Primary Care Provider [phone] Allergies Active Allergy Reactions Criticality Noted Date Comments Penicillins Hives Medium 09/22/2024 Medications PNV with [id number] 27 mg iron- 1 mg tablet Take [...] on file Legal Sex Female 7:36 PM SPLICING MACHINE OPERATOR Gender Identity Not on file Sexual Orientation Not on file Last Filed Vital Signs Vital Sign Reading Time Taken Comments Blood Pressure 136/90 09/22/2024 12:50 PM SPLICING MACHINE OPERATOR Pulse 70 09/22/2024 12:50 PM SPLICING MACHINE OPERATOR Temperature 37.2 C (99 F) 09/22/2024 12:50 PM SPLICING MACHINE OPERATOR Respiratory Rate 16 09/22/2024 12:50 PM SPLICING MACHINE OPERATOR Oxygen Saturation 99% 09/22/2024 12:50 PM SPLICING MACHINE OPERATOR Inhaled Oxygen Concentration - - Weight 73.9 kg (163 lb) 09/22/2024 12:50 PM SPLICING MACHINE OPERATOR Height 167.6 cm (5' 6) 09/22/2024 12:50 PM SPLICING MACHINE OPERATOR Body Mass Index 26.31 09/22/2024 12:50 PM SPLICING MACHINE OPERATOR Plan of Treatment Health Maintenance Due Date [...] patient's age to complete this topic Insurance [facility] [employer] Address: [facility] [id number] [place] [address] Care Teams Senior Mobile Web Developer Relationship Specialty Start Date End Date Kartik Guerin MD [address] [place] [address] PCP - General Occupational Medicine 08/08/24
--- OUTSIDE RECORDS SUMMARY | 2025-04-21 06:22 | XMS_ITS | Clinical Summary ---
Author Organization [facility] Address [address] [place] [address] Care Team Providers Care Pulp Drier Name Role Phone Geno Burton MD Primary Care Provider Source Comments [facility],non-owned Affiliates and Associated Physician Practices is amultiple site organization consisting of ambulatory clinics and hospital sitesin [place], [place], [place] and [place]. This disclosure is being madepursuant to the Care Everywhere program and may not contain all information available regarding this patient. Last updated 18.[facility] Allergies Active Allergy Reactions Criticality Noted Date [...] Plan: 1. Encouraged her speaking with her Diet Technician Registered who prescribes the sertraline if she thinks [...] during breast-feeding. Maternal Medicine recommendations: 1. Notify double bass player of Zoloft use if continued into the 3rd trimester 1. 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
[2025-04-21 07:02] LABS: Hematocrit 35.2 % (37.0-47.0); Hemoglobin 11.9 g/dL (12.0-15.0); Immature Granulocyte Percent A 0.9 % (0-0.5); Lymphocytes Absolute Auto 2.61 K/mm3 (0.9-3.2); Mean Corpuscular HGB Conc 33.8 g/dl (32-36); Mean Corpuscular Hemoglobin 29.8 pg (26-34); Mean Corpuscular Volume 88.0 fl (80-100); Nucleated Red Blood Cells Absolute Auto 0.000 K/mm3 (0.0-0.012); Nucleated Red Blood Cells Perc 0.0 % (0.0-0.2); Platelet Count Result 313 k/mm3 (150-375); Red Blood Count 4.00 M/mm3 (4.2-5.4); White Blood Count 11.5 K/mm3 (4.5-10.0)
[2025-04-21] MEDS: LACTATED RINGERS 1,000 ML 999 ML IV CONT ×3 (07:21→10:50)
[2025-04-21 07:40] LABS: Syphilis IgG/IgM Antibody Non-Reactive (Nonreactive)
--- NOTE | 2025-04-21 07:44 | LDADM ---
This patient, Gia Jean, was admitted to Labor/Delivery/Recovery 107 on 04/21/25 at 06:16. Plans for labor, pain management and were discussed with patient. Patient/family oriented to hospital policies and general routines including ID bracelet, bed and alarms, visiting hours, pain management, procedures, bathroom and other care routines, personal items, smoking policy, room service/diet and guest tray routines, security routines, and visiting hours. Patient/Family are encouraged to report perceived risks to care and to ask questions if they do not understand what they are told or what they should do. See OBIX for further documentation.
--- NOTE | 2025-04-21 08:27 | P.PNAN_ITS ---
Anes - Eval Pre Procedure Procedure: labor pain management Date/Time: 04/21/25 08:27 Surgeon: Terri Preop Diagnosis: pain during labor Pre Op Diagnosis: iol Patient Data Age: 29 Gender: F Height: 1.68 m Weight: 93.8 kg Last Vital Signs Temp 98 F 04/21/25 07:21 Pulse 80 04/21/25 08:16 BP 129/89 04/21/25 08:16 Pulse Ox 98 04/21/25 08:22 O2 Del Method Room Air 04/21/25 07:44 Allergies Allergy/AdvReac Type Severity Reaction Status Date / Time Cephalosporins Allergy Mild Hives Verified 04/09/25 23:05 Penicillins Allergy Mild Hives Verified 04/09/25 23:05 Home Medications ?Medication ?Instructions ?Recorded ?Confirmed ?Type escitalopram oxalate 20 mg tablet 20 mg PO DAILY 07/0604/21/25 History qtmrbamo-zjm-Pz-FA 1 mg 1 tablet PO DAILY 04/21/25 History tablet promethazine 25 mg tablet 25 mg PO Q6H PRN nausea and 08/06/20 04/07/25 Rx vomiting #20 tabs bupropion HCl 150 mg 24 hr tablet, 150 mg PO DAILY 05/2404/21/25 History extended release (Wellbutrin XL) Laboratory Tests 04/21/25 06:52 WBC 11.5 H K/mm3 (4.5-10.0) RBC 4.00 L M/mm3 (4.2-5.4) Hgb 11.9 L g/dL (12.0-15.0) Hct 35.2 L % (37.0-47.0) MCV 88.0 fl (80-100) MCH 29.8 pg (26-34) MCHC 33.8 g/dl (32-36) RDW 12.5 % (11.5-14.5) Plt Count 313 k/mm3 (150-375) MPV 9.4 fl (7.4-10.4) Immature Gran % (Auto) 0.9 H % (0-0.5) Neut % (Auto) 69.5 % (45.5-73.1) Lymph % (Auto) 22.8 % (18.3-44.2) Barren % (Auto) 5.8 % (2.6-8.5) Eos % (Auto) 0.7 % (0-4.4) Baso % (Auto) 0.3 % (0.2-1.2) Lymph # (Auto) 2.61 K/mm3 (0.9-3.2) Barren # (Auto) 0.7 H K/mm3 (0.1-0.6) Eos # (Auto) 0.1 K/mm3 (0-0.3) Baso # (Auto) 0.0 K/mm3 (0.0-0.1) Abs Immat Gran (auto) 0.10 H K/mm3 (0.00-0.031) Absolute Neuts (auto) 8.0 H K/mm3 (1.3-6.7) Absolute Nucleated RBC 0.000 K/mm3 (0.0-0.012) Nucleated RBC % 0.0 % (0.0-0.2) Syphilis IgG/IgM Ab Non-reactive (Nonreactive) Blood Type B Positive Antibody Screen Negative Patient hx anesthesia problems: none Family hx anesthesia problems: none Results Review: All pre-operative results and documents have been reviewed as part of the pre- operative evaluation. [facility] Past Medical History Medical History and not yet delivered Depression Pyelonephritis IBS (irritable bowel syndrome) Anxiety Surgical History Surgical History History of tonsillectomy Family History Family History Other Patient denies significant medical history Social History Social History Smoking status: Never smoker Second hand tobacco smoke exposure: Yes Alcohol intake: never Substance use: never Lack of Transportation: No Lack of Food: Never True Current Housing: I Have Housing Concerned About Future Housing: No Difficulty Paying Gas/Electric Bills: No Difficulty Paying for Meds: No Currently Unemployed: No Education: Bachelor's Degree Difficulty w/ Childcare or Family Care: No Living arrangements: with family Occupation/Education: occupation Gender identity (if verbalized by the patient): Female Sexual Orientation (if Verbalized by the Patient): Straight or Heterosexual Spiritual care concerns: No Agree to blood products: Yes Exam Day of Procedure 04/21/25 08:28
[2025-04-21] MEDS: OXYTOCIN 30 UNITS/NS 500 ML 30 UNITS/500 ML BAG IV CONT (10:08)
[2025-04-21] MEDS: PHENYLEPHRINE 1,000 MCG/10 ML SYRINGE 100 MCG IV PUSH (10:49)
[2025-04-21] MEDS: METHYLERGONOVINE MALEATE 0.2 MG/ML VIAL IM (14:44)
--- NOTE | 2025-04-21 14:52 | PM.OBPRVD ---
OB - Vaginal Delivery Note Procedure Delivery date: 04/21/25 Induction method: AROM and Per Pitocin Protocol Delivery monitor: External FHT and Internal Uterine Route of delivery: Episiotomy description: None Laceration Description: None Specimen: No Quantitative Blood Loss (ml): 435 Anesthesia type: Epidural Disposition: Floor Complications: No immediate complications Baby Date of : 04/21/25 Time of : 14:29 Infant gender: Male Weight (pounds): 7 Weight (ounces): 2 presentation: vertex position: Left Occiput Anterior Placenta delivery description: Spontaneous Cord Vessel Description: 3 Vessels and Clamped/Cut score one minute: 8 score five minutes: 9 Narrative: increase in bleeding after placenta delivered, pitocin started, IM methergine, rectal cyctotec, stable and doing well VSS
[2025-04-21] MEDS: ONDANSETRON INJ 4 MG/2 ML VIAL IV PUSH (15:05)
[2025-04-21] MEDS: OXYTOCIN 30 UNITS/NS 500 ML 30 UNITS/500 ML BAG 125 UNITS IV CONT (15:08)
[2025-04-21] MEDS: TRANEXAMIC ACID 1,000MG/ISO100 1,000 MG/100 ML BAG 200 MG IVPB (15:21)
[2025-04-21] MEDS: ACETAMINOPHEN 325 MG TABLET 650 MG PO (15:48)
--- NOTE | 2025-04-21 18:31 | OBPPTRN ---
1720-Patient transferred to post room #285 via wheelchair. Support person present. Oriented to unit, room, information board, rooming in, admission packet and security measures. Patient verbalizes understanding.
[2025-04-21] MEDS: buPROPion HCL XL (24 HR) 150 MG TABCR PO (21:06)
[2025-04-21] MEDS: ESCITALOPRAM OXALATE 10 MG TABLET 20 MG PO (21:06)
--- NOTE | 2025-04-21 23:05 | WPDOBADMIT ---
Obstetrics - Admit Note Admission Note: record reviewed. No pertinent additions to the history and/or any subsequent changes in the physical findings that are not consistent with the expected course of the were found. Additions to the history and/or subsequent changes in the physical findings follow. at 0830 admit for IOL, hx anxiety and depression anticipate vaginal delivery
[2025-04-21] MEDS: IBUPROFEN 600 MG TABLET PO (23:16)
[2025-04-21] MEDS: DIBUCAINE 1% OINTMENT 30 GM TUBE 1 APPLIC TOPICAL (23:17)
[2025-04-22] MEDS: HYDROcodone/acetaminophen (*CRX) 5-325 MG TABLET 1 TAB PO ×3 (00:12→18:35)
--- NOTE | 2025-04-22 00:57 | PC.NURSE ---
04/22/2025 at 2320 Bladder scanner shows 372 cc of urine in bladder.
[2025-04-22] MEDS: ACETAMINOPHEN 325 MG TABLET 650 MG PO ×2 (04:41→11:06)
[2025-04-22] MEDS: IBUPROFEN 600 MG TABLET PO ×3 (04:46→20:02)
[2025-04-22 05:07] LABS: Hematocrit 33.7 % (37.0-47.0); Hemoglobin 11.3 g/dL (12.0-15.0)
[2025-04-22 08:45] VITALS: BP 109/66; PULSE 74; RESP 18; TEMP 36.3; O2SAT 100
--- NOTE | 2025-04-22 08:46 | P.PNOB_ITS ---
OB - PN: Subj Subjective Date/time seen: 04/22/25 08:46 Interval history: pp day 1 doing well except hemorrhoid pain OB - PN: Obj Data Labs 04/22/25 04:36 Labs: Laboratory Results - last 24 hr 04/22/25 04:36 Hgb 11.3 L Hct 33.7 L OB - PN A/P Plan day: 1 Plan: routine care Time Spent With Patient Time: Total time spent is greater than 50% in coordination of care (as documented) at patient's floor/unit and/or counseling patient: Review of Systems 2 Review of Systems: All systems reviewed & are unremarkable except as noted in HPI and below Exam 2 Const: General: cooperative, healthy appearing and comfortable Neck: Neck: normal visual inspection Resp: Effort & Inspection: normal respiratory effort Cardio: Rate: regular rate : Other: hemorrhoids present Extrem: General: normal to inspection
[2025-04-22] MEDS: DOCUSATE SODIUM 100 MG CAPSULE PO (08:55)
[2025-04-22] MEDS: MULTIVIT/MIN/PREN/FOL AC/IRON TABLET 1 TAB PO (08:55)
--- NOTE | 2025-04-22 13:26 | WPDANLDPN2 ---
Anes-Prog Note L&D Date/Time: 04/22/25 13:26 Comfortable throughout: labor and delivery Neuraxial method: epidural Epidural/Spinal procedure site: clean & non-tender Neuro status: Neuro function grossly intact. Cardiovascular status: normal Respiratory status: normal Airway patency: baseline Mental status: baseline Post-Op hydration status: normal Vital Signs: Last Vital Signs Temp 97.4 F L 04/22/25 08:45 Pulse 74 04/22/25 08:45 Resp 18 04/22/25 08:45 BP 109/66 04/22/25 08:45 Pulse Ox 100 04/22/25 08:45 O2 Del Method Room Air 04/22/25 08:45 Pain score (VAS): 0 I/O: Intake & Output 04/21/25 04/22/25 04/22/25 23:59 07:59 15:59 Intake Total 1100 Output Total 570 Balance 530 Post-procedural complaints: none Patient feedback: Patient satisfied with anesthetic care.
[2025-04-22 19:50] VITALS: BP 118/64; PULSE 82; RESP 16; TEMP 36.1; O2SAT 96
[2025-04-22] MEDS: buPROPion HCL XL (24 HR) 150 MG TABCR PO (21:44)
[2025-04-22] MEDS: ESCITALOPRAM OXALATE 10 MG TABLET 40 MG PO (21:45)
[2025-04-23] MEDS: IBUPROFEN 600 MG TABLET PO ×2 (02:29→08:54)
[2025-04-23] MEDS: ACETAMINOPHEN 325 MG TABLET 650 MG PO ×2 (02:29→08:55)
[2025-04-23 07:35] VITALS: BP 123/73; PULSE 74; RESP 16; TEMP 36.6; O2SAT 98
[2025-04-23] MEDS: DOCUSATE SODIUM 100 MG CAPSULE PO (08:54)
[2025-04-23] MEDS: MULTIVIT/MIN/PREN/FOL AC/IRON TABLET 1 TAB PO (08:54)
--- NOTE | 2025-04-23 10:15 | PC.NURSE ---
Reviewed standard discharge information with patient including monitoring for required output, milk production, and follow up at [place] and with offset plate maker in the first week of life. Mother has decided to pump and bottle feed rather than feeding directly at breast. She does not have a breast pump yet and desires a wearable pump that she can get through insurance. Suggested she consider an electric pump for initiating her milk supply. She is educated on the importance of frequent and consistent pumping in the early days for an abundant supply. Parents are encouraged to take the feeding log and continue to track feedings and output for the first week . Offered outpatient resources with [facility] referral and Services at [place]. Patient has the Mom/Baby Guide for further education and reference for common concerns, phone numbers, and guidance on when to call the doctor. A feeding plan was added to the infant?s discharge plan. Patient states that she has no further questions or concerns regarding .???
--- NOTE | 2025-04-23 10:34 | P.PNOB_ITS ---
OB - PN: Subj Subjective Date/time seen: 04/23/25 10:34 Interval history: PPD#2 s/p Doing well, pain improved Voiding without issue, passing flatus Ready for discharge home today OB - PN: Obj Data Labs 04/22/25 04:36 OB - PN A/P Assessment and Plan (1) (spontaneous vaginal delivery): Code(s): O80 - Encounter for full-term uncomplicated delivery Status: Acute Plan day: 1 Plan: routine care and discharge home Time Spent With Patient Time: Total time spent is greater than 50% in coordination of care (as documented) at patient's floor/unit and/or counseling patient: Review of Systems 2 Review of Systems: All systems reviewed & are unremarkable except as noted in HPI and below Exam 2 Const: General: comfortable and no acute distress O rientation/consciousness: patient oriented x3 Resp: Effort & Inspection: normal respiratory effort
--- NOTE | 2025-04-23 10:36 | P.DS_ITS ---
DS: Admitting Diagnosis Discharge Date 04/23/25 Admitting Diagnosis induction of labor DS: Discharge Diagnosis Discharge Diagnosis (1) (spontaneous vaginal delivery): Code(s): O80 - Encounter for full-term uncomplicated delivery Status: Acute OB - DS: Summary OB Procedures : None OB Procedures Intrapartum: Spontaneous Vag Delivery OB Procedures: : None Peripartum Data Laceration Description: None Episiotomy description: None Time Spent with Patient Time attestation: Total time spent providing and/or coordinating discharge services: Discharge Plan Discharge Attending physician on discharge: Hemanth Zee Consulting providers: Brittany Jackman Discharging Clinician: Chinmay Cruz Patient Disposition: Home Activity: pelvic rest Diet: regular Patient Instructions: Antibiotic Form Patient Language: [place] Stand Alone Forms: General Discharge Information Follow-up/Referrals: Brittany Jackman CNM [Certified Nurse Carbon Printer, REGIONAL TELECOMMUNICATIONS SPECIALIST] - 2 Weeks Discharge Medications: New hydrocodone-acetaminophen 5-325 mg tablet 1 tablet PO Q6H PRN (Reason: pain) 5 Days Qty: 10 0RF Continued escitalopram oxalate 20 mg tablet 20 mg PO DAILY [id number] 1 mg Tablet 1 tablet PO DAILY promethazine 25 mg tablet 25 mg PO Q6H PRN (Reason: nausea and vomiting) Qty: 20 0RF bupropion HCl [Wellbutrin XL] 150 mg tablet extended release 24 hr 150 mg PO DAILY Date of admission: 04/21/25 06:16 Primary Care Provider: PHYSICIAN,[employer] Admitting Provider: Hemanth Zee Attending physician on admission: Hemanth Zee Condition: Stable
[2025-04-25 11:34] VITALS: BP 122/80; PULSE 84; RESP 18; TEMP 37.2; O2SAT 100
== END 2025-04-23 12:40 | disposition home or self-care (01) | DRG 806 ==
LOC: ANHLDR 06:20 → ANHOB2 17:21
PROVIDERS: Advanced Practice Midwife; Admitting Provider Obstetrics & Gynecology; Visit Provider Obstetrics & Gynecology
DX: O44.43 Low lying placenta NOS or without hemorrhage, third trimester (principal); O87.2 Hemorrhoids in the puerperium; Z37.0 Single live birth; Z3A.39 39 weeks gestation of pregnancy; O99.344 Other mental disorders complicating childbirth; F41.9 Anxiety disorder, unspecified; F32.A Depression, unspecified
CPT/HCPCS: 36415; 85014; 85018; 85025; 86593; 86850; 86900; 86901; A9270; J2210; J2371; J2405; J2590; J2795; J7120